=== PATIENT | female | born 1975 | race Two or more races ===

== ENCOUNTER 2023-05-06 18:40 | Emergency (ER) | payer OTHER ==
[~2023-05-06] VITALS: Ht 162.6 cm; Wt 96.5 kg
[2023-05-06 18:41] VITALS: TEMP 98
[2023-05-06 19:01] LABS: GLUCOMETER DEV NAME(LOC) ERT.5; GLUCOSE,POINT OF CARE 158 MG/DL (70-110)
[2023-05-06] MEDS ORDERED: IBUPROFEN 600 MG TABLET PO ONE (20:45)
[2023-05-06 21:45] VITALS: BP 154/71; PULSE 64; RESP 18
== END 2023-05-06 22:57 | disposition home or self-care (01) ==
LOC: EMS 18:43
DX: M25.562 Pain in left knee (principal); E11.9 Type 2 diabetes mellitus without complications
CPT/HCPCS: 29530; 82962; 99283

== ENCOUNTER 2024-08-08 11:37 | Inpatient (IN) | payer OTHER ==
[~2024-08-08] VITALS: Ht 165.1 cm; Wt 90.4 kg
[2024-08-08] MEDS ORDERED: ASPIRIN 325 MG TABLET PO ONE (11:45)
[2024-08-08] MEDS: HEPARIN SODIUM,PORCINE 5,000 UNITS/ML VIAL IVP ONE (11:56)
[2024-08-08] MEDS: TICAGRELOR 90 MG TABLET PO ONE (11:56)
[2024-08-08] MEDS: SODIUM CHLORIDE 0.9% 1,000 ML IV SCH (11:57)
[2024-08-08 11:59] LABS: BASOPHILS % (AUTO) 0.6 % (0.0-2.0); EOSINOPHILS % (AUTO) 0.9 % (1.0-6.0); HEMATOCRIT 45.7 % (36-46); HEMOGLOBIN 14.9 g/dL (12.0-16.0); LYMPHOCYTES # (AUTO) 3.3 K/uL (1.0-4.8); LYMPHOCYTES % (AUTO) 35.7 % (22.0-44.0); MEAN CORPUSCULAR HEMOGLOBIN 27.6 pg (26.0-34.0); MEAN CORPUSCULAR HGB CONC 32.6 G/dL (31.0-37.0); MEAN CORPUSCULAR VOLUME 85 fL (80-100); MONOCYTES # (AUTO) 0.6 K/uL (0.1-1.0); MONOCYTES % (AUTO) 6.2 % (2.0-9.0); NEUTROPHILS # (AUTO) 5.2 K/uL (1.8-7.7); NEUTROPHILS % (AUTO) 56.6 % (40.0-70.0); PLATELET COUNT (AUTO) 288 K/uL (150-450); RED CELL DISTRIBUTION WIDTH 13.4 % (11.5-14.5); WHITE BLOOD COUNT (AUTO) 9.1 K/uL (4.5-11.0)
[2024-08-08 12:08] LABS: ANION GAP 14 mmol/L (8-16); CALCIUM, TOTAL 9.1 mg/dL (8.8-10.5); CARBON DIOXIDE 22 mmol/L (22-29); CHLORIDE 104 mmol/L (98-107); CREATININE 0.71 mg/dL (0.60-1.30); GLOMERULAR FILTR. RATE CALC > 60 mL/min (>60); GLUCOSE,RANDOM 205 mg/dL (70-110); POTASSIUM 3.5 mmol/L (3.5-5.1); SODIUM SERUM 140 mmol/L (136-145); UREA NITROGEN, BLOOD 10 mg/dL (7-18)
[2024-08-08] MEDS ORDERED: IOHEXOL 300 MG/ML 100 ML VIAL ONE ×2 (12:09→13:09)
[2024-08-08] MEDS ORDERED: SODIUM BICARBONATE 50 MEQ/50 ML VIAL ONE (12:09)
[2024-08-08] MEDS ORDERED: LIDOCAINE/PF 1% 30 ML VIAL ONE (12:09)
[2024-08-08] MEDS ORDERED: HEPARIN SODIUM 1000 UNITS/NS 1,000 ML ONE (12:10)
[2024-08-08 12:14] LABS: PROTHROMBIN TIME 10.9 SEC (9.4-11.6)
[2024-08-08] MEDS ORDERED: LORazepam 2 MG/ML VIAL ONE (12:15)
[2024-08-08 12:17] LABS: TROPONIN I-HIGH SENSITIVITY 320 ng/L (<51)
[2024-08-08 12:19] LABS: B-TYPE NATRIURETIC PEPTIDE 42 pg/mL (0-100)
[2024-08-08] MEDS ORDERED: FentaNYL CITRATE PF 100 MCG/2 ML VIAL ONE (12:33)
[2024-08-08 12:34] VITALS: BP 154/84; PULSE 67
[2024-08-08] MEDS ORDERED: VERAPAMIL HCL 2.5 MG/ML 2 ML VIAL ONE (12:34)
[2024-08-08] MEDS ORDERED: NITROGLYCERIN 50 MG/D5% WATER 250 ML ONE (12:34)
[2024-08-08] MEDS ORDERED: MIDAZOLAM HCL 2 MG/2 ML VIAL ONE (12:34)
[2024-08-08] MEDS ORDERED: IPRATROPIUM BROMIDE 0.5 MG/2.5 ML NEB SOLUTION NEB PRN (12:45)
[2024-08-08] MEDS ORDERED: ALBUTEROL SULFATE 2.5 MG/0.5 ML NEB SOLUTION NEB PRN (12:45)
[2024-08-08] MEDS ORDERED: ATROPINE SULFATE 0.1 MG/ML 10 ML SYRINGE IVP ONE (12:49)
[2024-08-08] MEDS ORDERED: EPINEPHrine 1:10,000 [1 MG/10 ML] SYRINGE ONE (12:49)
[2024-08-08] MEDS ORDERED: EPTIFIBATIDE 2 MG/ML 10 ML VIAL IVP ONE (12:52)
[2024-08-08] MEDS: HEPARIN SODIUM,PORCINE 1,000 UNITS/ML 10 ML VIAL IARTER ONE (13:15)
[2024-08-08] MEDS: VERAPAMIL HCL 2.5 MG/ML 2 ML VIAL IARTER ONE (13:15)
[2024-08-08] MEDS: NITROGLYCERIN/D5W 50 MG/250 ML IV BOTTLE IARTER ONE (13:16)
[2024-08-08] MEDS: LIDOCAINE 1% 30 ML/SOD BICARB 8.4% 4 ML SQ ONE (13:16)
[2024-08-08] MEDS: FentaNYL CITRATE PF 100 MCG/2 ML VIAL IVP ONE ×2 (13:17)
[2024-08-08] MEDS: HEPARIN SODIUM 1000 UNITS/NS 1,000 ML IARTER ONE (13:18)
[2024-08-08] MEDS: HEPARIN SODIUM,PORCINE 1,000 UNITS/ML 10 ML VIAL IVP ONE (13:18)
[2024-08-08] MEDS: IOHEXOL 300 MG/ML 100 ML VIAL IARTER ONE (13:19)
[2024-08-08] MEDS: IOHEXOL 300 MG/ML 100 ML VIAL ICOR ONE (13:19)
[2024-08-08 13:54] VITALS: BP 126/84; PULSE 68
[2024-08-08] MEDS: AZITHROMYCIN 500 MG/NS 250 ML IV SCH (14:41)
[2024-08-08] MEDS: CefTRIAXone 1 GM/DEXTROSE 50 ML IV SCH (14:42)
[2024-08-08] MEDS: HEPARIN SODIUM,PORCINE 5,000 UNITS/ML VIAL SQ SCH (15:05)
[2024-08-08] MEDS ORDERED: DEXTROSE 50%-WATER 25 GM/50 ML SYRINGE IVP PRN (15:45)
[2024-08-08] MEDS: ONDANSETRON HCL 4 MG/2 ML VIAL IVP PRN (18:00)
[2024-08-08] MEDS: FUROSEMIDE 20 MG/2 ML VIAL IVP ONE ×2 (18:18→21:27)
[2024-08-08 19:33] LABS: BASOPHILS % (AUTO) 0.4 % (0.0-2.0); EOSINOPHILS % (AUTO) 0.1 % (1.0-6.0); HEMATOCRIT 41.9 % (36-46); HEMOGLOBIN 13.3 g/dL (12.0-16.0); LYMPHOCYTES # (AUTO) 1.2 K/uL (1.0-4.8); LYMPHOCYTES % (AUTO) 10.3 % (22.0-44.0); MEAN CORPUSCULAR HGB CONC 31.8 G/dL (31.0-37.0); MEAN CORPUSCULAR VOLUME 85 fL (80-100); MONOCYTES # (AUTO) 0.5 K/uL (0.1-1.0); MONOCYTES % (AUTO) 4.5 % (2.0-9.0); NEUTROPHILS # (AUTO) 9.7 K/uL (1.8-7.7); NEUTROPHILS % (AUTO) 84.7 % (40.0-70.0); PLATELET COUNT (AUTO) 254 K/uL (150-450); RED BLOOD CELL COUNT(AUTO) 4.93 MIL/uL (4.00-5.20); RED CELL DISTRIBUTION WIDTH 13.5 % (11.5-14.5); WHITE BLOOD COUNT (AUTO) 11.5 K/uL (4.5-11.0)
[2024-08-08] MEDS: NITROGLYCERIN 0.4 MG SUBLINGUAL TABLET #25 SL PRN (19:40)
[2024-08-08 19:45] LABS: ANION GAP 12 mmol/L (8-16); CALCIUM, TOTAL 7.4 mg/dL (8.8-10.5); CARBON DIOXIDE 24 mmol/L (22-29); CHLORIDE 107 mmol/L (98-107); GLOMERULAR FILTR. RATE CALC > 60 mL/min (>60); GLUCOSE,RANDOM 148 mg/dL (70-110); POTASSIUM 3.8 mmol/L (3.5-5.1); SODIUM SERUM 143 mmol/L (136-145); UREA NITROGEN, BLOOD 7 mg/dL (7-18)
[2024-08-08] MEDS ORDERED: INSULIN GLARGINE,HUM.REC.ANLOG 100 UNITS/ML SQ SCH (21:00)
[2024-08-08] MEDS ORDERED: TICAGRELOR 90 MG TABLET PO SCH (21:00)
[2024-08-08] MEDS: TICAGRELOR 90 MG TABLET PO SCH (21:28)
[2024-08-08] MEDS: DOCUSATE SODIUM 100 MG CAPSULE PO SCH (21:30)
[2024-08-08] MEDS: METOPROLOL TARTRATE 25 MG TABLET PO SCH (21:31)
[2024-08-08] MEDS: ATORVASTATIN CALCIUM 40 MG TABLET PO SCH (21:31)
[2024-08-08 21:35] LABS: GLUCOMETER DEV NAME(LOC) ERT.6; GLUCOSE,POINT OF CARE 138 MG/DL (70-110)
[2024-08-09] MEDS: MELATONIN 3 MG TABLET PO PRN (00:03)
[2024-08-09] MEDS: ZOLPIDEM TARTRATE 5 MG TABLET PO ONE (02:46)
[2024-08-09 06:35] LABS: BASOPHILS % (AUTO) 0.2 % (0.0-2.0); EOSINOPHILS % (AUTO) 0.3 % (1.0-6.0); HEMATOCRIT 41.4 % (36-46); HEMOGLOBIN 13.5 g/dL (12.0-16.0); LYMPHOCYTES % (AUTO) 16.4 % (22.0-44.0); MEAN CORPUSCULAR HEMOGLOBIN 27.3 pg (26.0-34.0); MEAN CORPUSCULAR HGB CONC 32.5 G/dL (31.0-37.0); MEAN CORPUSCULAR VOLUME 84 fL (80-100); MONOCYTES # (AUTO) 0.7 K/uL (0.1-1.0); MONOCYTES % (AUTO) 5.6 % (2.0-9.0); NEUTROPHILS # (AUTO) 9.4 K/uL (1.8-7.7); NEUTROPHILS % (AUTO) 77.5 % (40.0-70.0); PLATELET COUNT (AUTO) 246 K/uL (150-450); RED BLOOD CELL COUNT(AUTO) 4.94 MIL/uL (4.00-5.20); RED CELL DISTRIBUTION WIDTH 13.5 % (11.5-14.5); WHITE BLOOD COUNT (AUTO) 12.1 K/uL (4.5-11.0)
[2024-08-09 07:05] LABS: ANION GAP 14 mmol/L (8-16); CALCIUM, TOTAL 8.2 mg/dL (8.8-10.5); CARBON DIOXIDE 24 mmol/L (22-29); CHLORIDE 103 mmol/L (98-107); CHOL/HDL RATIO 3.3 (3.9-5.7); CHOLESTEROL 137 mg/dL (131-200); CREATININE 0.65 mg/dL (0.60-1.30); GLOMERULAR FILTR. RATE CALC > 60 mL/min (>60); GLUCOSE,RANDOM 148 mg/dL (70-110); HDL CHOLESTEROL 41 mg/dL (40-60); LDL CHOL (CALC.) 77 mg/dL (0-130); SODIUM SERUM 141 mmol/L (136-145); TRIGLYCERIDES 96 mg/dL (15-150); UREA NITROGEN, BLOOD 5 mg/dL (7-18)
[2024-08-09 07:46] LABS: TROPONIN I-HIGH SENSITIVITY > 25000 ng/L (<51)
[2024-08-09] MEDS ORDERED: POTASSIUM CHL 10 MEQ/WATER 50 ML IV PRN (08:15)
[2024-08-09] MEDS: ASPIRIN 81 MG CHEWABLE TABLET PO SCH (08:15)
[2024-08-09] MEDS: EMPAGLIFLOZIN 10 MG TABLET PO SCH (08:16)
[2024-08-09 08:20] LABS: GLUCOMETER DEV NAME(LOC) ERT.6; GLUCOSE,POINT OF CARE 144 MG/DL (70-110)
[2024-08-09 08:48] VITALS: BP 120/74; PULSE 66; RESP 18; TEMP 98.2; O2SAT 95
[2024-08-09] MEDS: METOPROLOL SUCCINATE 25 MG ER TABLET PO SCH (09:19)
[2024-08-09] MEDS: SPIRONOLACTONE 25 MG TABLET PO SCH (09:20)
[2024-08-09] MEDS: LOSARTAN POTASSIUM 25 MG TABLET PO SCH (09:20)
[2024-08-09] MEDS: POTASSIUM CHLORIDE 20 MEQ ER TABLET PO PRN (09:21)
[2024-08-09] MEDS: INSULIN LISPRO 100 UNITS/ML SQ PRN (09:25)
[2024-08-09 11:19] VITALS: BP 111/69; PULSE 74; RESP 16; TEMP 98.4; O2SAT 97
[2024-08-09] MEDS ORDERED: SODIUM CHLORIDE 0.9% 250 ML IV ONE (15:03)
[2024-08-09 15:58] VITALS: BP 108/66; PULSE 78; RESP 18; TEMP 98.9; O2SAT 98
[2024-08-09 20:30] VITALS: BP 98/61; PULSE 82; RESP 17; TEMP 98.3; O2SAT 95
[2024-08-09 22:00] LABS: GLUCOMETER DEV NAME(LOC) 5S.1C; GLUCOSE,POINT OF CARE 173 MG/DL (70-110)
[2024-08-09 22:00] LABS: GLUCOMETER DEV NAME(LOC) 5N.1D; GLUCOSE,POINT OF CARE 156 MG/DL (70-110)
[2024-08-09 22:00] LABS: GLUCOMETER DEV NAME(LOC) 5N.1D; GLUCOSE,POINT OF CARE 136 MG/DL (70-110)
[2024-08-09 23:26] VITALS: BP 95/61; PULSE 76; RESP 18; TEMP 98.2; O2SAT 94
[2024-08-10 03:54] VITALS: BP 90/55; PULSE 78; RESP 18; TEMP 98.6; O2SAT 94
[2024-08-10] MEDS ORDERED: SODIUM CHLORIDE 0.9% 1,000 ML ONE (04:53)
[2024-08-10] MEDS: SODIUM CHLORIDE 0.9% 500 ML IV ONE (05:13)
[2024-08-10] MEDS: ACETAMINOPHEN 325 MG TABLET PO PRN (05:16)
[2024-08-10 06:15] LABS: BASOPHILS % (AUTO) 0.5 % (0.0-2.0); HEMATOCRIT 40.6 % (36-46); HEMOGLOBIN 13.3 g/dL (12.0-16.0); LYMPHOCYTES # (AUTO) 1.9 K/uL (1.0-4.8); LYMPHOCYTES % (AUTO) 20.9 % (22.0-44.0); MEAN CORPUSCULAR HEMOGLOBIN 27.7 pg (26.0-34.0); MEAN CORPUSCULAR HGB CONC 32.8 G/dL (31.0-37.0); MEAN CORPUSCULAR VOLUME 85 fL (80-100); MONOCYTES # (AUTO) 0.7 K/uL (0.1-1.0); MONOCYTES % (AUTO) 7.6 % (2.0-9.0); NEUTROPHILS # (AUTO) 6.4 K/uL (1.8-7.7); PLATELET COUNT (AUTO) 238 K/uL (150-450); RED CELL DISTRIBUTION WIDTH 13.4 % (11.5-14.5); WHITE BLOOD COUNT (AUTO) 9.1 K/uL (4.5-11.0)
[2024-08-10 06:32] LABS: ANION GAP 12 mmol/L (8-16); CALCIUM, TOTAL 8.1 mg/dL (8.8-10.5); CARBON DIOXIDE 23 mmol/L (22-29); CHLORIDE 105 mmol/L (98-107); CREATININE 0.81 mg/dL (0.60-1.30); GLOMERULAR FILTR. RATE CALC > 60 mL/min (>60); GLUCOSE,RANDOM 111 mg/dL (70-110); POTASSIUM 3.8 mmol/L (3.5-5.1); SODIUM SERUM 140 mmol/L (136-145); UREA NITROGEN, BLOOD 10 mg/dL (7-18)
[2024-08-10 07:14] LABS: TROPONIN I-HIGH SENSITIVITY > 25000 ng/L (<51)
[2024-08-10 08:00] VITALS: BP 101/62; PULSE 66; RESP 18; TEMP 98; O2SAT 96
[2024-08-10] MEDS ORDERED: EMPA10TA3 PO (10:19)
[2024-08-10] MEDS ORDERED: TICA90TA PO (10:19)
[2024-08-10] MEDS ORDERED: SPIR-37 PO (10:19)
[2024-08-10] MEDS ORDERED: METO25XL PO (10:19)
[2024-08-10] MEDS ORDERED: ATOR40TA71 PO (10:19)
[2024-08-10] MEDS ORDERED: ASPI-1450 PO (10:19)
[2024-08-10] MEDS ORDERED: LISI2.5T91 PO (10:20)
[2024-08-10 11:29] VITALS: BP 103/60; PULSE 67; RESP 16; TEMP 98.2; O2SAT 96
[2024-08-10 12:00] LABS: GLUCOMETER DEV NAME(LOC) 5S.1C; GLUCOSE,POINT OF CARE 123 MG/DL (70-110)
[2024-08-10 12:36] LABS: GLUCOMETER DEV NAME(LOC) 5S.2D; GLUCOSE,POINT OF CARE 164 MG/DL (70-110)
== END 2024-08-10 14:45 | disposition home or self-care (01) | DRG 174 ==
LOC: EMS 11:37 → EDH 12:28 → 5S 08-09 08:40
PROVIDERS: ADMIT Internal Medicine; ATTEND Internal Medicine
PROC: 027034Z Dilation of Coronary Artery, One Artery with Drug-eluting Intraluminal Device, Percutaneous Approach (ICD-10-PCS; principal; 2024-08-08)
PROC: 4A023N7 Measurement of Cardiac Sampling and Pressure, Left Heart, Percutaneous Approach (ICD-10-PCS; 2024-08-08)
PROC: B2111ZZ Fluoroscopy of Multiple Coronary Arteries using Low Osmolar Contrast (ICD-10-PCS; 2024-08-08)
DX: I21.09 ST elevation (STEMI) myocardial infarction involving other coronary artery of anterior wall (principal); I50.41 Acute combined systolic (congestive) and diastolic (congestive) heart failure; I11.0 Hypertensive heart disease with heart failure; I25.10 Atherosclerotic heart disease of native coronary artery without angina pectoris; E11.65 Type 2 diabetes mellitus with hyperglycemia; E66.9 Obesity, unspecified; Z95.5 Presence of coronary angioplasty implant and graft; Z68.33 Body mass index [BMI] 33.0-33.9, adult
CPT/HCPCS: 71045; 80048; 80061; 82962; 83735; 83880; 84132; 84484; 85025; 85610; 85730; 86850; 86900; 86901; 87040; 92920; 92928; 93005; 93306; 99291; G0378; J0171; J0456; J0461; J0696; J1327; J1644; J1940; J2060; J2250; J2405; J3010; J3490; J7030; J7050; Q9967; 36415-L1; 36415-TC; Z7610